=== PATIENT | female | born 1945 | race Two or more races ===

== ENCOUNTER 2019-06-07 05:22 | Day surgery (SDC) | payer OTHER ==
[~2019-06-07 05:22] MED LIST: AVAPRO150 MG PO; CARDURA XL4 MG PO; CRESTOR PO; CRESTOR20 MG PO; FISH OIL 1,0001 EAC1 PO; HUMULIN 70100 UNIT/2; METHOTREXATE2.5 MG PO; MULTIPLE VITAM1 EACH PO; NORVASC2.5 M1 PO; PEPCID AC20 MG PO; PREDNISONA PO; ROBAXIN-750750 MG PO; ZETIA10 MG PO; [UNRECOGNIZED DRUG - OTHER] {1, null}
== END 2019-06-07 10:37 | disposition home or self-care (01) ==
LOC: CIR.AMB 05:22 → ADM 11:45 → CIR.AMB 11:45
DX: M19.022 Primary osteoarthritis, left elbow (principal)

== ENCOUNTER 2023-11-11 11:30 | Outpatient (CLI) | payer OTHER | END 2023-11-11 11:31 | disposition home or self-care (01) | LOC: NUCLEAR 11:30 | PROVIDERS: ATTEND Internal Medicine Rheumatology | DX: M81.0 Age-related osteoporosis without current pathological fracture (principal) ==

== ENCOUNTER 2023-11-11 12:19 | Outpatient (CLI) | payer OTHER | END 2023-11-11 12:26 | disposition home or self-care (01) | LOC: MAMO-SONO 12:19 | PROVIDERS: ATTEND General Practice | DX: N64.4 Mastodynia (principal); N64.89 Other specified disorders of breast; Z12.31 Encounter for screening mammogram for malignant neoplasm of breast ==

== ENCOUNTER 2023-11-16 07:36 | Outpatient (CLI) | payer OTHER | END 2023-11-16 07:46 | disposition home or self-care (01) | LOC: TOM 07:36 | DX: R19.5 Other fecal abnormalities (principal) ==